=== PATIENT | female | born 1940 | race Caucasian/White ===

== ENCOUNTER 2019-03-20 09:00 | Outpatient (RCR) | payer MEDICARE, BC | END 2019-03-20 09:30 | disposition home or self-care (01) | LOC: OT 09:00 | DX: S52.532D Colles' fracture of left radius, subsequent encounter for closed fracture with routine healing (principal) ==

== ENCOUNTER 2020-04-29 11:22 | Inpatient (IN) | payer MEDICARE, BC ==
[~2020-04-29] VITALS: Ht 157.5 cm; Wt 54.6 kg
[2020-04-29] MEDS ORDERED: BENZONATATE100 M2 PO (11:54)
[2020-04-29] MEDS ORDERED: OS-CAL 500+D31 EACH PO (12:18)
[2020-04-29] MEDS ORDERED: CODEINE-GUAIFE120 ML PO (12:20)
[2020-04-29] MEDS ORDERED: MUCINEX 60600 MG/TA1 PO (12:21)
[2020-04-29] MEDS ORDERED: BREO ELLIPTA1 POW IH (12:21)
[2020-04-29] MEDS ORDERED: COMBIVENT RESPI1 SPR IH (12:22)
[2020-04-29] MEDS ORDERED: IMBRUVICA420 MG PO (12:22)
[2020-04-29] MEDS ORDERED: LEVOTHYROXIN0.088 MG PO (12:23)
[2020-04-29] MEDS ORDERED: SINGULAIR 110 MG/TAB PO (12:24)
[2020-04-29] MEDS ORDERED: PANTOPRAZOLE SO40 MG PO (12:24)
[2020-04-29] MEDS ORDERED: PRAVASTATIN SOD20 MG PO (12:24)
[2020-04-29 13:41] VITALS: BP 143/74
[2020-04-29 14:37] VITALS: BP 143/74
--- NOTE | 2020-04-29 15:00 | NUR ---
the pt requests that the haq and wallet in her purse be placed into the safe. Parul Palacios RN and this RN count $200 haq and both this and a red wallet are placed in the safe at this time.
[2020-04-29 18:00] VITALS: BP 136/67
[2020-04-30 05:45] VITALS: BP 123/58
--- NOTE | 2020-04-30 07:05 | NUR ---
REPORT RECEIVED FROM SUMANTH GAO.
[2020-04-30 07:56] LABS: HEMATOCRIT 34.6 % (37.0-47.0); HEMOGLOBIN 10.7 g/dL (12.5-16.0); MEAN CELL VOLUME 93 fl (78-100); MEAN CORPUSCULAR HEMOGLOBIN 29 pg (27-31); MEAN CORPUSCULAR HGB CONC 31 g/dL (33-37); MEAN PLATELET VOLUME 10.3 fl (7.4-10.4); PLATELET COUNT 336 K/mm3 (130-400); RED BLOOD COUNT 3.73 M/mm3 (4.10-5.30); RED CELL DISTRIBUTION WIDTH 15.5 % (11.5-14.5)
[2020-04-30 08:05] LABS: WHITE BLOOD COUNT 49.6 K/mm3 (4.8-10.8)
[2020-04-30 08:08] LABS: ALBUMIN 2.3 g/dL (3.4-4.8)
[2020-04-30 08:10] LABS: CALCIUM 7.7 mg/dL (8.3-10.5)
[2020-04-30 08:11] LABS: TOTAL PROTEIN 4.3 g/dL (6.2-8.1)
[2020-04-30 08:13] LABS: TOTAL BILIRUBIN 0.5 mg/dL (0.2-1.2)
[2020-04-30 08:35] LABS: LYMPHOCYTE 80 % (20-51); MONOCYTE 3 % (3-10); NEUTROPHILS 17 % (42-75)
[2020-04-30 12:56] LABS: D-DIMER 1.15 mg/L FEU (0.15-0.50)
--- NOTE | 2020-04-30 14:30 | NUR ---
NAPPING IN BED. VERBALIZES FRUSTRATION WITH OWN BODY ON HOW LONG IT HAS TAKEN TO RECOVER. ENCOURAGE PATIENT TO REST WHEN HER BODY TELLS HER TO. DISCUSS SHOWING HERSELF JUANA AND ALLOWING FOR TIME TO RECOVER. PATIENT ANXIOUS TO GO HMOE TO ; STATES "IN 61 YEARS, THIS MONTH IN THE HOSPITAL IS THE LONGEST WE'VE BEEN APART." POSITIVE ENCOURAGEMENT PROVIDED.
--- NOTE | 2020-04-30 16:15 | NUR ---
CONTINUES TO FEEL TIRED. DOES NOT WANT TO GET IN CHAIR FOR SUPPER. TYPICALLY DOES NOT EAT MUCH IN THE EVENING ANYWAY. ALLOW PATIENT TO STAY IN BED AFTER SHE AGREES TO TAKE A SHORT WALK BEFORE BED.
[2020-04-30 17:11] VITALS: BP 132/69
--- NOTE | 2020-04-30 19:12 | NUR ---
REPORT PROVIDED TO SUMANTH GAO.
[2020-05-01 06:34] VITALS: BP 139/62
--- NOTE | 2020-05-01 07:10 | NUR ---
REPORT RECEIVED FROM SUMANTH GAO.
--- NOTE | 2020-05-01 07:40 | NUR ---
SITTING IN BED WITH TV ON. OXYGEN IN PLACE AT 2LPM VIA NC. COFFEE IN RIGHT HAND. REPORTS SLEEPING VERY WELL LAST NIGHT. APPEARS RESTED WITH A MORE HEALTHIER LOOKING PINK SKIN COLOR TODAY COMPARED TO YESTERDAY. LOOSE SOUNDING PRODUCTIVE COUGH WITH YELLOW SPUTUM TODAY.
--- NOTE | 2020-05-01 14:08 | NUR ---
DAUGHTER BRINGS IN SMALL CANS OF JOY CORNELIA AND MORE PAJAMAS FOR PATIENT. PHYSICAL THERAPY REPORTS ABLE TO MAINTAIN OXYGEN SATURATIONS >92% DURING THERAPY WITH 1LPM VIA NC. HOWEVER, PATIENT DID REPORT FEELING "WOOZY."
--- NOTE | 2020-05-01 15:19 | NUR ---
ARRIVE TO PATIENT ROOM TO ACCOMPANY ON WALK. PATIENT SIGHS AND STATES "NOT RIGHT NOW." RECENTLY RETURNED TO BED FROM BATHROOM WHERE SHE HAD A BM. THIS GREATLY FATIGUED PATIENT AND SHE DOES NOT FEEL LIKE AMBULATING AT THE MOMENT. MAKE A PLAN TO WALK THE NEXT TIME SHE GETS OUT OF BED. EDUCATION PROVIDED FOR NEED TO CHECK OXYGEN SATURATION WITH ACTIVITY. PATIENT AGREES TO WALK TO HALLWAY AT MINIMUM.
[2020-05-01 17:05] VITALS: BP 120/69
--- NOTE | 2020-05-01 18:52 | NUR ---
REPORT PROVIDED TO LISSET FARAH.
--- NOTE | 2020-05-01 19:25 | NUR ---
Report received from Renée GAO. Patient resting supine in bed with oxygen in place at 1L/NC. A/O x4. Denies pain or SOB. Continues to have a harsh cough, states productive at times "but not lately". Assessment completed. Repositioned up higher in the bed via 2 staff. Denies questions, wants or needs. Bed alarm on, call light in reach.
--- NOTE | 2020-05-02 04:58 | NUR ---
Patient rings to go to BR. Up with 1:1 assist. Urine a little dark. Water encouraged. States she slept "better" last night then night before. Starting to cough again. Tamiritussin 5 ML taken at this time.
[2020-05-02 05:39] VITALS: BP 134/70
--- NOTE | 2020-05-02 07:01 | NUR ---
Report to Henrietta GAO.
[2020-05-02 07:52] LABS: D-DIMER 0.99 mg/L FEU (0.15-0.50)
--- NOTE | 2020-05-02 08:10 | NUR ---
Pt up in recliner at bedside, Pleasant. A/O x 3. Denies any pain but states "it's just this cough". "wears me out". Tessalon pearles given for cough. 02 at 1 L/NC. Lungs with coarse insp crackles in bilateral bases. Anterior insp crackles on the right. Coughing up yellowish phlegm. Call light in reach. Denies any pain. Resp 24 at rest. Pt has SOB w/ activity.
--- NOTE | 2020-05-02 11:00 | NUR ---
Uses her ipad and talks w/ . Cough has been less.
--- NOTE | 2020-05-02 13:50 | NUR ---
Pt refused to walk when approached by SPRING ENCASER. Discussed with pt importance of keeping up her strength. Pt agreeable to short walk after breathing treatment. Pt tearful as "really misses . I just want to hug him". Emotional support given. Discussed her coming to the window to see her. Pt stated that she appreciates seeing him when she facetimes him on her ipad but it's not the same. Pt ambulates about 25 ft with walker and CGA with 02 at 1 L/NC. SP02 91-93% ON RA at 1 L prior to walk and then dips to high 80's (with poor waveform noted) as she rests briefyly before return to room. Then Returns to room with using walker w/ steady gait - sp02 returns to 91-93% on 1 L/NC upon return to bed. Pt c/o having "wobbly legs". HR up to 116 with ambulation. Pt states "I'll do that again later." Bed alarms on. Call light in reach.
[2020-05-02 18:25] VITALS: BP 168/72
--- NOTE | 2020-05-02 19:35 | NUR ---
Report received from Henrietta GAO. Patient resting supine in bed with eyes closed. Oxygen in place at 1L/NC. Awakens easily with verbal stimuli. States tired today from activities. Denies pain. Continues to have cough with occasional production per her report. Assessment completed. Denies wants or needs at this time.
[2020-05-03 05:43] VITALS: BP 146/61
--- NOTE | 2020-05-03 06:49 | NUR ---
Report to Henrietta GAO.
--- NOTE | 2020-05-03 09:15 | NUR ---
Pt pleasant and denies any pain. Sitting up in recliner at bedside. 02 at 1 L/NC. Pt breathes shallow and has dry cough at times and some pale yellow production at times. Pt states coughing usually less after breathing treatment. Lungs with bilateral insp coarse crackles in bases. Noted to have bilateral lower leg and ankle edema - +1 but greater on the right leg. 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 Pt had stool yesterday. Flutter valve given for pt to use. Encouraged pt deeper breaths as seems to breath shallowly. Call light in reach and chair alarm on.
--- NOTE | 2020-05-03 11:37 | NUR ---
Pt agreeable to ambulate a short distance. Pt ambulates with walker and 02 at 1 L/NC with more spunk and steadiness than yesterday w/ sp02 down to 87% and 02 increased to 2 L/NC for rest of walk - pt wanted to walk closer to 35 ft today and turned around and returned to BR. Noted SOB but improved over yesterday. Upon return to recliner and 02 decreased back to 1 L/NC with sp02 92% at rest. Pt denies any discomforts. Pt excited that daughter may bring up to her window next week when it's warmer. Call light in reach and chair alarm on.
--- NOTE | 2020-05-03 11:41 | NUR ---
Pt voided 150 ml of concentrated yellow urine. Increase in fluid intake encouraged. Pt admits she has not had much water this am.
--- NOTE | 2020-05-03 13:41 | NUR ---
Report to MURRAY Jaime.
--- NOTE | 2020-05-03 14:26 | NUR ---
Report received from Ricardo Barnes RN and care assumed. Pt resting in chair with no needs or concerns at this time.
[2020-05-03 17:08] VITALS: BP 144/72
--- NOTE | 2020-05-03 18:59 | NUR ---
Report given to Chitra and care transferred.
--- NOTE | 2020-05-03 21:00 | NUR ---
Patient requests couph med/dry occasional soft couph noted. HS meds along with tessilon perle and breathing treatments reviewed and given. O2 on 1L pnc. Denies pain.
--- NOTE | 2020-05-04 03:31 | NUR ---
Patient dozing. States she has been sleeping but continues with couphAbisai Richardson AC offered and given.
--- NOTE | 2020-05-04 05:37 | NUR ---
Patient resting with eyes closed.
[2020-05-04 05:41] VITALS: BP 134/68
--- NOTE | 2020-05-04 06:15 | NUR ---
Patient up to the bathroom with walker, gait steady 1 A. Manages all toileting tasks and rests back in bed. Has frequent moist couph and couphs up light yellow moderate amount of phlemn. Tessilon perle given.
[2020-05-04 09:01] LABS: D-DIMER 0.72 mg/L FEU (0.15-0.50)
[2020-05-04 17:12] VITALS: BP 129/68
--- NOTE | 2020-05-04 19:23 | NUR ---
Report received from Ericka GAO. Patient up in recliner with eyes closed. Legs elevated. Awakens easily with verbal stimuli. Oxygen in place at 1L/NC. Oriented but tired. Assessment completed. Lungs with coarse crackles RUL and fine crackles RLL. Clear HEATHER and Dim LLL. Continues to have a weak cough, productive at times. Some L ankle swelling noted. Denies wants or needs at this time. Chair alarm on. Call light in reach.
--- NOTE | 2020-05-05 05:42 | NUR ---
Sitting up in bed playing Solitaire on her I-Pad. States she slept well last night. States she is "starting to cough again". Sarah Huff given, along with AM medications. Denies further wants or needs at this time.
[2020-05-05 06:07] VITALS: BP 131/61
--- NOTE | 2020-05-05 07:15 | NUR ---
Report to Rakel GAO.
[2020-05-05 10:30] LABS: HEMATOCRIT 35.7 % (37.0-47.0); HEMOGLOBIN 11.1 g/dL (12.5-16.0); MEAN CELL VOLUME 95 fl (78-100); MEAN CORPUSCULAR HEMOGLOBIN 29 pg (27-31); MEAN CORPUSCULAR HGB CONC 31 g/dL (33-37); MEAN PLATELET VOLUME 11.1 fl (7.4-10.4); PLATELET COUNT 331 K/mm3 (130-400); RED BLOOD COUNT 3.77 M/mm3 (4.10-5.30); RED CELL DISTRIBUTION WIDTH 16.3 % (11.5-14.5)
[2020-05-05 10:43] LABS: WHITE BLOOD COUNT 34.1 K/mm3 (4.8-10.8)
[2020-05-05 10:48] LABS: ALBUMIN 2.9 g/dL (3.4-4.8); POTASSIUM 4.3 mmol/L (3.5-5.1)
[2020-05-05 10:49] LABS: CALCIUM 8.1 mg/dL (8.3-10.5)
[2020-05-05 10:51] LABS: TOTAL PROTEIN 4.9 g/dL (6.2-8.1)
[2020-05-05 10:52] LABS: TOTAL BILIRUBIN 0.5 mg/dL (0.2-1.2)
[2020-05-05 11:05] LABS: D-DIMER 0.8 mg/L FEU (0.15-0.50)
[2020-05-05 11:29] LABS: LYMPHOCYTE 86 % (20-51); MONOCYTE 3 % (3-10); NEUTROPHILS 10 % (42-75); OVALOCYTES 1+
[2020-05-05 15:01] LABS: URINE APPEARANCE CLEAR; URINE BILIRUBIN NEGATIVE (NEGATIVE); URINE BLOOD NEGATIVE (NEGATIVE); URINE COLOR YELLOW; URINE GLUCOSE NEGATIVE (NEGATIVE); URINE KETONE NEGATIVE (NEGATIVE); URINE LEUKOCYTE ESTERASE NEGATIVE (NEGATIVE); URINE NITRATE NEGATIVE (NEGATIVE); URINE PROTEIN(semi-quant) TRACE mg/dL (NEGATIVE); URINE UROBILINOGEN NORMAL (NORMAL)
[2020-05-05 15:02] LABS: URINE MUCUS PRESENT (NOT PRESENT)
--- NOTE | 2020-05-05 16:11 | NUR ---
Spoke with Mrs. Rasmussen. Offered her [facility]. She is not interested at this time.
[2020-05-05 17:13] VITALS: BP 127/62
--- NOTE | 2020-05-05 19:00 | NUR ---
Report recieved from Rakel Bingham RN.
--- NOTE | 2020-05-05 22:06 | NUR ---
Pt was resting in her recliner when this nurse went into her room, she easily awaked when this nurse said her name. Pt states that she does not have any pain at this time. Productive cough with "cream mucus", pt denies pain when coughing. No concerns at this time. Call light within reach.
[2020-05-06 06:09] VITALS: BP 126/61
--- NOTE | 2020-05-06 08:43 | NUR ---
KELVIN SALAZAR PRESENT IN ROOM WITH PATIENT, WHO IS TEARFUL REGARDING HER DESIRE TO RETURN HOME. PATIENT ALSO WOULD LIKE RECENT LAB WORK FAXED TO HER ONCOLOGIST. PLAN OF CARE DISCUSSED AND POSITIVE ENCOURAGEMENT PROVIDED.
--- NOTE | 2020-05-06 09:11 | NUR ---
LABS FAXED TO DR GUARDADO AT [phone] PER PATIENT REQUEST.
--- NOTE | 2020-05-06 15:59 | NUR ---
CASE MANAGEMENT WORKING ON SETTING UP HOME CARE FOR PT TO RETURN HOME SAFELY, SEDA SALAZAR REPORTS "IT MAY NOT BE THIS WEEK BUT [facility] IS WORKING ON IT," PT REMAINS IN LOW SPIRITS THROUGHOUT SHIFT, DENIES NEED FOR ANTIDEPRESSANT MEDICATIONS, MENTIONS MULTIPLE TIMES HER DESIRE TO RETURN HOME TO HER LOVED ONES, ENCOURAGED THAT WE ARE WORKING ON A SAFE DC PLAN FOR HER AND WILL KEEP HER UPDATED WITH ANY CHANGES, STABLE AT THIS TIME
[2020-05-06 16:42] VITALS: BP 118/55
--- NOTE | 2020-05-06 21:10 | NUR ---
Patient reports couph is improved and denies shortness of breath at this time. Rests in bed watching TV. Affect quiet. Denies pain. HS meds and breathing treatment reviewed and given. O2 on 1L pnc. Faint crackles heard except CTA HEATHER.
--- NOTE | 2020-05-07 05:00 | NUR ---
Patient awakened for am med. States "oh ya" to getting sleep this noc.
[2020-05-07 06:08] VITALS: BP 152/61
--- NOTE | 2020-05-07 11:37 | NUR ---
First visit from the wrecking mechanic. No needs right now.
--- NOTE | 2020-05-07 13:00 | NUR ---
PT'S AND FAMILY AT WINDOW TO SEE PATIENT, PT'S SPIRITS LIFTED AFTER BEING ABLE TO SEE HER , PT EDUCATED THAT WE ARE POTENTIALLY TRYING TO GET HER DC'D HOME BY MONDAY IF ALL REMAINS GOING WELL, WORKING ON A SAFE DC PLAN NOW WITH CASE MANAGEMENT AND FAMILY, PT TEARFUL AND REPORTS HER DESIRE TO GET HOME MULTIPLE TIMES THROUGHOUT SHIFT, AFTER SEEING HER PT STATES "I THINK I CAN MAKE IT UNTIL MONDAY NOW TO GET HOME TO HIM, BUT IT WILL STILL BE TOUGH," PT ENCOURAGED TO CONTINUE HER HARD WORK WITH THERAPY AND WE WILL GET HER HOME TO HER LOVED ONES EMILIANA
[2020-05-07 17:12] VITALS: BP 138/72
--- NOTE | 2020-05-07 17:54 | NUR ---
PT UP IN CHAIR, ATE 100% OF SUPPER, EATING MEALS BETTER YESTERDAY AND TODAY, DENIES ANY ACUTE CHANGES, DENIES NEEDS AT THIS TIME, DENIES PAIN, CALL LIGHT WITHIN REACH AND CHAIR ALARM ON UPON EXITING ROOM
--- NOTE | 2020-05-07 19:08 | NUR ---
Report received from Parul GAO. Patient sitting up in recliner with legs elevated in recliner. A/O x4. Denies pain. Oxygen in place a 1L/NC. States she "coughed up a good amount of phelgm" today. Lungs improved from the last time this nurse took care of patient. States she is using her I.S./flutter valve often. Assessment completed. Denies wants or needs. Call light in reach.
[2020-05-08 06:09] VITALS: BP 148/69
--- NOTE | 2020-05-08 07:01 | NUR ---
Report to Parul GAO.
--- NOTE | 2020-05-08 10:35 | NUR ---
REPORT RECEIVED FROM Noel POLANCO RN PATIENT CARE ASSUMED AT THIS TIME.
[2020-05-08 17:49] VITALS: BP 138/68
--- NOTE | 2020-05-08 19:19 | NUR ---
report given to griselda almendarez
--- NOTE | 2020-05-08 22:00 | NUR ---
Pt was resting in recliner when this nurse entered the room. Pt reports only having pain when coughing. Crackles to lung bases bilat. Pt is SOB and fatigued with exertion. Productive cough with "cream" colored mucus noted. Pt denies any concerns at this time. Chair alarm on, call light within reach. Will continue to monitor.
[2020-05-09 05:37] VITALS: BP 130/67
[2020-05-09 17:43] VITALS: BP 153/76
--- NOTE | 2020-05-09 19:00 | NUR ---
Report received from Inez GAO. Patient up in recliner with legs elevated. Playing Solitaire on I-Pad. Oxygen in place a 1L/NC. Denies pain or SOB. Continues to have cough, productive at times per her report. Assessment completed. Denies wants or needs at this time.
[2020-05-10 05:39] VITALS: BP 121/60
--- NOTE | 2020-05-10 07:16 | NUR ---
Report to Inez GAO.
[2020-05-10 17:19] VITALS: BP 140/56
--- NOTE | 2020-05-10 19:15 | NUR ---
Report received from Inez GAO. Patient resting supine in bed with eyes closed. Awakens easily to verbal stimuli. Oxygen in place at 1L/NC. Denies pain. Assessment completed. Denies wants or needs at this time.
[2020-05-11 05:20] VITALS: BP 143/66
--- NOTE | 2020-05-11 05:33 | NUR ---
Rested well through the night. No pain. Minimal coughing. Up to BR PRN with SBA and walker.
--- NOTE | 2020-05-11 06:55 | NUR ---
Report received from GAGAN Brown.
--- NOTE | 2020-05-11 07:06 | NUR ---
Report to Marti GAO.
--- NOTE | 2020-05-11 08:35 | NUR ---
SPEAK WITH PENELOPE FROM THE [facility]. SHE FAXED LAB ORDERS THIS MORNING AND WOULD NOW LIKE US TO DISREGARD THE ORDER. LABS WERE FAXED TO THEM PREVIOUSLY AND THEY NO LONGER NEED LAB WORK DONE AGAIN.
--- NOTE | 2020-05-11 15:46 | NUR ---
Called [facility]. They reassured this CM they would be able to see her tomorrow afternoon. Called [facility] and they are needing orders for oxygen and the testing. Orders sent via fax to [facility]. Testing being asses by nursing. Will fax results to [facility] upon completion.
--- NOTE | 2020-05-11 16:13 | NUR ---
Pt requesting robotussin for her cough. States that when she walks sometimes it increases her cough. Pt reports some cough a little up after doing her IS but sputum not witnessed. Pt denies any pain or discomfort at this time. Call light in reach. Encouraged to contact nurse as needed.
--- NOTE | 2020-05-11 17:00 | NUR ---
Pt sating well on RA at rest. Pt up to bathroom with MACHINE CLOTHING REPLACER. O2 sat 87% on RA. O2 replaced and pt sating well on 1L via NC. Pt doing well throughout shift. Denied any pain or discomfort. Pt resting comfortably in chair, getting ready for dinner. Call light in reach. Pt verbalized excited for potential discharge tomorrow.
[2020-05-11 17:34] VITALS: BP 143/70
--- NOTE | 2020-05-11 18:58 | NUR ---
Report given to GAGAN Brown.
--- NOTE | 2020-05-11 19:20 | NUR ---
Report received from Marti GAO. Patient up in recliner in room, working reading on I-Pad. Oxygen in place a 1L/NC. Denies pain. States she is still coughing off and of. No production today per her report. Assessment completed. Denies wants or needs. Call light in reach.
[2020-05-12 04:32] VITALS: BP 138/63
[2020-05-12 05:56] LABS: HEMATOCRIT 32.5 % (37.0-47.0); MEAN CELL VOLUME 96 fl (78-100); MEAN CORPUSCULAR HEMOGLOBIN 30 pg (27-31); MEAN CORPUSCULAR HGB CONC 31 g/dL (33-37); MEAN PLATELET VOLUME 11.4 fl (7.4-10.4); PLATELET COUNT 333 K/mm3 (130-400); RED BLOOD COUNT 3.37 M/mm3 (4.10-5.30); RED CELL DISTRIBUTION WIDTH 17.6 % (11.5-14.5); WHITE BLOOD COUNT 19.6 K/mm3 (4.8-10.8)
[2020-05-12 05:59] LABS: ALBUMIN 2.9 g/dL (3.4-4.8); POTASSIUM 4.1 mmol/L (3.5-5.1)
[2020-05-12 06:00] LABS: CALCIUM 8.4 mg/dL (8.3-10.5)
[2020-05-12 06:01] LABS: TOTAL PROTEIN 4.4 g/dL (6.2-8.1)
[2020-05-12 06:03] LABS: TOTAL BILIRUBIN 0.4 mg/dL (0.2-1.2)
[2020-05-12 06:51] LABS: LYMPHOCYTE 90 % (20-51); MONOCYTE 2 % (3-10); NEUTROPHILS 7 % (42-75)
[2020-05-12 06:53] LABS: OVALOCYTES 1+
--- NOTE | 2020-05-12 07:03 | NUR ---
Report to Demetra GAO.
--- NOTE | 2020-05-12 07:15 | NUR ---
REPORT RECEIVED FROM GAGAN DARLING. REPORTS SHE IS GOING HOME TODAY AND NEED TO GET THE HOME OXYGEN FOR SET UP.
[2020-05-12] MEDS ORDERED: FERROUS SU325 MG/TAB PO (07:22)
--- NOTE | 2020-05-12 07:22 | NUR ---
Trapper with home oxygen here this am for drop off of oxygen tank for home use and to go to the home to set up her equipment. Paperwork given and will also need to fax discharge instructions and facesheet to company.
[2020-05-12] MEDS ORDERED: AMLODIPINE BES2.5 MG PO (07:23)
--- NOTE | 2020-05-12 09:00 | NUR ---
DISCHARGE INSTRUCTIONS GIVEN TO PATIENT AND PATIENT BELONGINGS ARE PACKED AND READY TO GO. PATIENT'S FAMILY REPORTS THEY ARE ON THEIR WAY TO GET HER. PATIENT'S VALUABLES THAT WERE PLACED IN SAFE ARE GIVEN TO PATIENT; PATIENT'S MEDS WERE ALSO TAKEN OUT OF MED ROOM AND GIVEN TO PATIENT. PATIENT REPORTS HAVING HER HEARING AIDS AND DENTURES; GLASSES AND IPAD/CELL PHONE. PATIENT HAS AN OXYGEN TANK FOR HOME USE READY TO GO AND PATIENT SHOWN HOW TO USE.
--- NOTE | 2020-05-12 09:05 | NUR ---
PATIENT OUT HOSPITAL WITHOUT INCIDENT.
== END 2020-05-12 09:00 | disposition home health service (06) | DRG 194 ==
LOC: MED/SURG 11:22
PROVIDERS: Physician Assistant; ADMIT Physician Assistant
DX: J12.89 Other viral pneumonia (principal); C91.10 Chronic lymphocytic leukemia of B-cell type not having achieved remission; R53.81 Other malaise; J45.909 Unspecified asthma, uncomplicated; I10 Essential (primary) hypertension; E03.9 Hypothyroidism, unspecified; F32.9 Major depressive disorder, single episode, unspecified; R09.02 Hypoxemia; Z66 Do not resuscitate; Z86.19 Personal history of other infectious and parasitic diseases; Z90.710 Acquired absence of both cervix and uterus
CPT/HCPCS: J1650